=== PATIENT | female | born 2000 | race Caucasian/White ===

== ENCOUNTER 2024-08-26 09:26 | Emergency (ER) | payer OTHER ==
[~2024-08-26] VITALS: Ht 160 cm; Wt 113.4 kg
[2024-08-26 09:31] VITALS: BP 139/85; PULSE 73; RESP 18; TEMP 98; O2SAT 100
[2024-08-26] MEDS: ACETAMINOPHEN EXTRA STRENGTH 500 MG TAB PO ONE (10:09)
[2024-08-26] MEDS: ONDANSETRON 4 MG ODT PO ONE (10:09)
[2024-08-26] MEDS: KETOROLAC 30 MG/ML VIAL IM ONE (10:13)
[2024-08-26 10:54] VITALS: TEMP 98.3
[2024-08-26 11:34] VITALS: BP 132/68; PULSE 72; RESP 18; O2SAT 97
== END 2024-08-26 11:35 | disposition home or self-care (01) ==
LOC: MED 09:26
DX: R11.2 Nausea with vomiting, unspecified (principal); M79.18 Myalgia, other site; R68.83 Chills (without fever)
CPT/HCPCS: 81025; 96372; 99283; J1885; Q0162